=== PATIENT | male | born 1990 | race African-American/Black ===

== ENCOUNTER 2019-06-09 17:16 | Emergency (ER) | payer SELFPAY ==
[~2019-06-09] VITALS: Ht 172.7 cm; Wt 59.0 kg
[2019-06-09] MEDS ORDERED: IBUPROFEN 600MG TABLET PO ONE (18:30)
[2019-06-09 18:43] VITALS: BP 127/81
== END 2019-06-09 19:12 | disposition home or self-care (01) ==
LOC: ER 17:16
DX: B34.9 Viral infection, unspecified (principal); R05 Cough
CPT/HCPCS: 71045; 99283